=== PATIENT | male | born 1945 | race Caucasian/White ===

== ENCOUNTER 2018-12-18 15:16 | Observation (INO) ==
[2018-12-18 17:42] LABS: BASO# 0.28 X1000 (0.0-0.2); BASO% 0.6 % (0.0-0.8); EOS# 0.11 X1000 (0.0-0.7); EOS% 0.2 % (0.0-10.0); HEMATOCRIT 41.5 % (42.0-52.0); HEMOGLOBIN 13.8 g/dL (14.0-18.0); MCH 25.7 PG (27-31); MCHC 33.3 g/dL (33-37); MCV 77.1 FL (81-99); MPV 11.7 FL (7.4-10.4); PLT 173 X1000 (130-400); RBC 5.38 XMIL (4.7-6.1); RDW 19.2 % (11.5-14.5); WBC 46.17 X1000 (4.8-10.8)
[2018-12-18 18:16] LABS: AGAP 14; BUN 9 mg/dL (8-22); CALCIUM 8.8 mg/dL (8.8-10.2); CHLORIDE 98 mmol/L (98-107); COSMO 273; ESTIMATED GFR > 60; GLUCOSE 103 mg/dL (70-104); POTASSIUM 2.9 mmol/L (3.5-5.1); SODIUM 137 mmol/L (136-145); TCO2 25 mmol/L (25-35)
[2018-12-18 18:51] LABS: LARGE PLATELETS OCCASIONAL; LYMPHS 13 % (21-51); MONO 2 % (1-9)
[2018-12-18 18:52] LABS: ANISOCYTOSIS 1+; SEGS 24 % (42-75)
[2018-12-18] MEDS ORDERED: ZOFRAN 16 MG in NS 25 ML IV ONE (19:18)
[2018-12-18] MEDS ORDERED: SODIUM CHLORIDE 0.9% INJ SCH (19:30)
[2018-12-18 20:18] LABS: URINE SOURCE CLEAN CATCH
[2018-12-18 20:22] LABS: BILIRUBIN URINE NEGATIVE (NEGATIVE); BLOOD URINE NEGATIVE (NEGATIVE); COLOR YELLOW; GLUCOSE URINE NEGATIVE (NEGATIVE); KETONE URINE NEGATIVE (NEGATIVE); LEUKOCYTES URINE NEGATIVE (NEGATIVE); NITRITE URINE NEGATIVE (NEGATIVE); PROTEIN URINE TRACE mg/dL (NEGATIVE); TURBIDITY URINE CLEAR (CLEAR); UROBILINOGEN URINE NORMAL (NORMAL)
[2018-12-18 20:24] LABS: UR EPITHELIAL CELLS <10 /HPF (<10); URINE BACTERIA NEGATIVE /HPF; URINE RBC <10 /HPF (<10); URINE WBC <10 /HPF (<10)
--- NOTE | 2018-12-18 21:45 | Diag Imaging Result Doc PS360 ---
EXAM: CT ABD/PELVIS W/IV CONT ONLY - 12/18/2018 HISTORY: LLQ pain TECHNIQUE: CT abdomen/pelvis with intravenous contrast COMPARISON: 09/05/2018 FINDINGS: There is chronic small right pleural effusion with pleural thickening and chronic dependent/compressive atelectasis. There is splenomegaly which is decreased compared to prior. There is no focal splenic lesion identified. There are no substantial abnormalities of the liver, adrenal glands, or pancreas identified. There are no calcified gallstones or pericholecystic inflammation identified. The bilateral kidneys enhance homogeneously. There is no hydronephrosis. There are no substantially enlarged lymph nodes identified. There is wall thickening along the colon from the hepatic flexure through the rectosigmoid colon. The wall thickening is most substantial at the sigmoid colon, bladder yun demonstrate heterogeneous enhancement and edema. There is infiltration of pericolic fat from the sigmoid. There is retained fluid in the proximal colon and distal small bowel. There is no evidence of bowel obstruction. The appendix shows no obvious inflammation. There is no extraluminal gas collection or abscess identified. There is no free air or substantial free fluid identified. IMPRESSION: Relatively generalized colitis. This is most substantial at the sigmoid, where the colitis is relatively severe. No abscess. No free air. Splenomegaly, which has decreased from prior.. This exam was performed using automated exposure control, adjustment of mA or kV according to patient size, and/or use of iterative reconstruction technique. Electronically signed by Nathan Ragsdale 12/18/2018 9:43 PM
[2018-12-18] MEDS: FLAGYL 500 MG/NS 500 MG/100 ML IVPB IV SCH (22:02)
--- NOTE | 2018-12-18 22:06 | HISTORY AND PHYSICAL ---
REASON FOR ADMISSION: One-day history of left lower quadrant pain and appears to be fever, low- grade. HISTORY OF PRESENT ILLNESS: He is a 73-year-old, white gentleman, with new onset of CLL, under the care of Dr. Bryant, on Imbruvica, came in with sudden onset of left lower quadrant pain and low- grade fever. White cell count 44,000. He was very extremely tender with guarding. Admitted to the hospital with possible diverticulitis. Waiting for CT of the abdomen and pelvis. Potassium is low. Started on IV fluids and IV antibiotics. PAST MEDICAL HISTORY: 1. Chronic lymphocytic leukemia. 2. CAD. 3. Type 2 diabetes. 4. Dupuytren's contracture of the left hand. 5. Acid reflux disease. 6. Gynecomastia. 7. Hyperlipidemia. 8. Hypertension. 9. Low-grade non-Hodgkin's lymphoma from CLL. 10. Osteoarthritis. 11. Prostate cancer, status post TURP by Dr. Chowdhury in 2019. PAST SURGICAL HISTORY: Bypass surgery, inguinal hernia repair, left hand surgery, back surgery x3, right shoulder surgery. MEDICINES: Allopurinol 300 mg daily, aspirin 81 mg daily, Lipitor 80 mg daily, baclofen 10 mg 2 tablets once daily, Plavix 75 daily, Flonase 1 spray in each nostril, Imbruvica 420 mg daily, lisinopril 20 mg daily, metformin 500 daily, Remeron 15 mg at bedtime, Protonix 40 daily, Toprol- XL 25 daily, tizanidine 4 mg 2 tablets daily. ALLERGIES: Not known. SOCIAL HISTORY: He has been for 36 years. No children. Lives in [place] and retired. No smoking. No alcohol. No drug abuse. FAMILY HISTORY: Father of heart problems at 69. HEALTH MAINTENANCE: Flu vaccine 01/18/2018, pneumococcal 02/20/2018, tetanus January 2018, shingles refused. Last physical August 2017, colonoscopy in July 2016. REVIEW OF SYSTEMS: HEENT: No headache. No vision problem. No earache. No sore throat. Neck: No goiter. No lymphadenopathy. No bruit. Cardiopulmonary: No chest pain, shortness of breath, PND, orthopnea. Gastrointestinal: Left lower quadrant pain, nausea, low-grade fever. Genitourinary: No history of hesitancy, frequency, dysuria. No swelling of feet. No joint pain. Neurologic: No focal symptoms or weakness. PHYSICAL EXAMINATION: VITAL SIGNS: Temperature is 99.1 degrees, pulse 80, blood pressure 152/71, room air 99%. Six feet tall, 169 pounds. HEENT: Atraumatic, normocephalic. Pupils equal, reactive to light. TMs are normal. Nose and throat within normal limits. NECK: Supple. No lymphadenopathy. No goiter. CHEST: Bilateral air entry. CARDIAC: Heart sounds are regular. ABDOMEN: Belly is soft. Tender in the left lower quadrant, guarding. No signs of peritonitis. EXTREMITIES: No peripheral edema, cyanosis. NEUROLOGIC: No obvious neurological deficits. INVESTIGATIONS: CBC: White cell count 46.17, hematocrit 41.5, platelets 173,000. Sodium 137, potassium 2.9, BUN 9, creatinine 1.0. Urinalysis is clear. ASSESSMENT/PLAN: 1. A 73-year-old, white male, with known history of chronic lymphocytic leukemia with chronic non- Hodgkin's lymphoma, under the care of [facility], came in with fever, left lower quadrant pain suspicious for diverticulitis. Plan of care is: A.) Diet n.p.o. B.) IV fluids with potassium. C.) Antibiotics with Zosyn and Flagyl. D.) Continue IV Nexium and Zofran for nausea. 2. Type 2 diabetes. Insulin with sliding scale insulin coverage. We will check the IgG levels and then follow up on the pending labs. 3. History of bypass surgery since 2019. Stable on aspirin, beta blockers, and will follow up. cc: Tae Cuellar MD
[2018-12-18] MEDS: NEXIUM IV SCH (22:11)
[2018-12-18] MEDS: POTASSIUM CHLORIDE 40 MEQ in 1/2 NS 1,000 ML IV SCH (22:12)
[2018-12-18] MEDS: ZOSYN 3.375 GM in NS 50 ML IV SCH (23:23)
[2018-12-18] MEDS: HUMULIN R SUBQ SCH (23:28)
[2018-12-19] MEDS: FLAGYL 500 MG/NS 500 MG/100 ML IVPB IV SCH ×5 (04:22→21:17)
[2018-12-19] MEDS: ZOSYN 3.375 GM in NS 50 ML IV SCH ×3 (06:32→19:27)
[2018-12-19] MEDS: HUMULIN R SUBQ SCH ×4 (06:33→21:17)
[2018-12-19 07:22] LABS: BASO# 0.15 X1000 (0.0-0.2); BASO% 0.5 % (0.0-0.8); EOS# 0.14 X1000 (0.0-0.7); EOS% 0.4 % (0.0-10.0); HEMATOCRIT 37.7 % (42.0-52.0); HEMOGLOBIN 12.5 g/dL (14.0-18.0); IMM GRAN% 0.3 % (0.0-0.5); LYMPH# 19.23 X1000 (1.2-3.4); LYMPH% 59.9 % (20.5-51.1); MCH 25.7 PG (27-31); MCHC 33.2 g/dL (33-37); MCV 77.4 FL (81-99); MONO# 3.06 X1000 (0.11-0.59); MONO% 9.5 % (1.7-9.3); MPV 12.2 FL (7.4-10.4); NEUT# 9.42 X1000 (1.4-6.5); NEUT% 29.4 % (42.2-75.2); PLT 152 X1000 (130-400); RBC 4.87 XMIL (4.7-6.1); RDW 19.1 % (11.5-14.5)
[2018-12-19 07:26] LABS: AGAP 11; BUN 9 mg/dL (8-22); CHLORIDE 100 mmol/L (98-107); COSMO 270; CREATININE 1.1 mg/dL (0.7-1.2); GLUCOSE 92 mg/dL (70-104); POTASSIUM 3.1 mmol/L (3.5-5.1); SODIUM 136 mmol/L (136-145); TCO2 25 mmol/L (25-35)
[2018-12-19 07:27] LABS: CALCIUM 8.1 mg/dL (8.8-10.2); ESTIMATED GFR > 60
[2018-12-19 08:01] LABS: LYMPHS 42 % (21-51); MONO 16 % (1-9); SEGS 26 % (42-75)
[2018-12-19] MEDS: POTASSIUM CHLORIDE 20 MEQ/SWI 20 MEQ/100 ML IVPB IV SCH ×2 (09:41→14:04)
[2018-12-19] MEDS: POTASSIUM CHLORIDE 40 MEQ in 1/2 NS 1,000 ML IV SCH ×2 (14:04→14:13)
--- NOTE | 2018-12-19 21:03 | GASTROENTEROLOGY CONSULTATION ---
DATE: 12/19/2018 REASON FOR CONSULTATION: Colitis, abdominal pain. HISTORY OF PRESENT ILLNESS: Mr. Dominik Marx is a 73-year-old gentleman with a past medical history of hypertension, hyperlipidemia, CAD status post CABG, non insulin-dependent diabetes, CLL on Imbruvica, GERD, iron deficiency anemia, and diverticulosis, who presents with 5 to 6 weeks of left lower quadrant abdominal pain and diarrhea. The patient describes his pain as cramping in the lower abdomen. He reports associated loose stools with mucus stools anywhere between 1 to 4 times per day. He has not been on any recent antibiotics. He denies any sick contacts. He does report a history of C difficile in the remote past. No changes to his medications. He was started on Imbruvica about 3 months ago. He has lost a significant amount of weight in the last 6 months, down from 184 to 169. He says that his white count prior to starting Imbruvica was about 105. REVIEW OF SYSTEMS: As per HPI, otherwise 12-point review of systems is negative. PAST MEDICAL HISTORY: CLL, non insulin-dependent diabetes, hypertension, hyperlipidemia, coronary artery disease status post CABG, GERD, iron deficiency anemia, history of C difficile, osteoarthritis, history of prostate cancer status post TURP. PAST SURGICAL HISTORY: Cardiac bypass, inguinal hernia repair, left hand surgery, back surgery x3, right rotator cuff. MEDICATIONS: Include allopurinol, aspirin, Lipitor, baclofen, Plavix, Flonase, Imbruvica, lisinopril, metformin, Remeron, Protonix, Toprol-XL, tizanidine. ALLERGIES: No known drug allergies. FAMILY HISTORY: No family history of GI malignancies. SOCIAL HISTORY: No smoking, alcohol or drug use. PHYSICAL EXAMINATION: Vital Signs: Temperature is 98.3 degrees, heart rate 81, respiratory rate 20, blood pressure 147/67, O2 saturation 99% on room air. General: Patient is awake, alert, oriented, no acute distress. HEENT: Sclerae anicteric. Moist mucous membranes. Extraocular motor intact. Neck: Supple. No JVD or lymphadenopathy. Cardiac: Regular rate and rhythm. No murmurs. Lungs: Clear to auscultation bilaterally. No wheezing. Abdomen: Obese, soft. Significant tenderness to palpation in the left lower quadrant with voluntary guarding. No rebound. No ascites. The bowel sounds are present. Extremities: No clubbing, cyanosis, or edema. Neurologic: Nonfocal. LABS: White count of 32 from 46. Hemoglobin is 12.5, MCV is 77.4, platelets of 152, segmented neutrophils of 26, monocytes of 16. BMP is notable for potassium of 3.1. UA shows trace protein. IMAGING: CT of the abdomen and pelvis with IV contrast shows relatively generalized colitis which is most substantial at the sigmoid, where the colitis is severe. No abscess. No free air. Splenomegaly which has decreased from prior. Stool studies are pending, including C difficile antigen and toxin, white cells, fecal occult and stool culture. ASSESSMENT AND PLAN: Mr. Dominik Marx is a gentleman with history of chronic lymphocytic leukemia and Clostridium difficile, who presents with severe left lower quadrant abdominal pain found to have diffuse colitis primarily in the sigmoid colon. He is currently on antibiotics with Zosyn and Flagyl. He is also on proton pump inhibitor therapy once daily. His white count has come down, although this is most likely related to his chronic lymphocytic leukemia. He has had a colonoscopy in the last 2 years. He had an esophagogastroduodenoscopy and colonoscopy in July 2016. EGD showed peptic ulcer disease which at that time was attributed to taking aspirin. Colonoscopy showed moderate severe diverticulosis in the sigmoid and descending colon. There were some small flat polyps that were removed in the sigmoid colon, otherwise unremarkable. Will plan on awaiting stool studies to rule out Clostridium difficile before considering diagnostic colonoscopy. Continue antibiotics, serial abdominal exams, pain control. The patient can have clear liquids as tolerated, antiemetics p.r.n., Proton pump inhibitor IV can be transitioned to p.o. once daily. Once his Clostridium difficile is ruled out, we will consider diagnostic colonoscopy to evaluate for ischemic colitis versus inflammatory bowel disease, which would be unusual at his age to have developed new onset inflammatory bowel disease, particularly in the setting of immunosuppression. Thank you for this consult. We will follow with you. Please call with any questions or concerns. cc: Tae Cuellar MD
[2018-12-19] MEDS: NEXIUM IV SCH (21:17)
[2018-12-20] MEDS: ZOSYN 3.375 GM in NS 50 ML IV SCH ×4 (00:20→17:42)
[2018-12-20] MEDS: POTASSIUM CHLORIDE 40 MEQ in 1/2 NS 1,000 ML IV SCH ×3 (03:31→22:24)
[2018-12-20] MEDS: FLAGYL 500 MG/NS 500 MG/100 ML IVPB IV SCH ×3 (03:31→21:25)
--- NOTE | 2018-12-20 06:02 | PROGRESS NOTE ---
DATE: 12/19/2018 SUBJECTIVE: The patient complains of diarrhea, left lower quadrant pain off and on for the last [address] findings discussed. REVIEW OF SYSTEMS: None reported. OBJECTIVE: Temperature is 98 degrees, low-grade fever. Vitals are stable.HEENT: Within normal limits. Neck: Supple. Chest: Clear. Heart sounds are regular. Belly is soft. Tender in the left lower quadrant. No peripheral edema. No obvious deficits. INVESTIGATIONS: CBC: White cell count 32, hematocrit 37, platelets 152,000. Sodium 136, potassium 3.1, chloride 100, BUN 9, creatinine 1.0, glucose 146. IgG is low. ASSESSMENT AND PLAN: 1. Sigmoid colitis, rule out infectious. Follow up on stool studies. 2. Chronic lymphocytic leukemia, on Imbruvica. 3. IgG deficiency. 4. NPO. 5. Check the inflammatory bowel disease panel. Also, consult with Dr. Judge. Currently on IV Flagyl and Zosyn. We will hold the home medications. We will repeat the labs in the morning. 6. Hypokalemia. Replace the potassium. LEVEL OF DOCUMENTATION: 25 minutes. cc: Tae Cuellar MD
[2018-12-20] MEDS: HUMULIN R SUBQ SCH ×4 (06:25→22:24)
[2018-12-20 07:32] LABS: BASO# 0.16 X1000 (0.0-0.2); BASO% 0.5 % (0.0-0.8); EOS# 0.19 X1000 (0.0-0.7); EOS% 0.6 % (0.0-10.0); HEMATOCRIT 41.8 % (42.0-52.0); HEMOGLOBIN 13.7 g/dL (14.0-18.0); MCH 25.4 PG (27-31); MCHC 32.8 g/dL (33-37); MCV 77.4 FL (81-99); MPV 11.9 FL (7.4-10.4); PLT 156 X1000 (130-400); RDW 19.2 % (11.5-14.5); WBC 32.57 X1000 (4.8-10.8)
[2018-12-20 07:42] LABS: AGAP 13; BUN 5 mg/dL (8-22); CALCIUM 8.3 mg/dL (8.8-10.2); CHLORIDE 103 mmol/L (98-107); COSMO 279; ESTIMATED GFR > 60; GLUCOSE 99 mg/dL (70-104); POTASSIUM 3.4 mmol/L (3.5-5.1); SODIUM 141 mmol/L (136-145); TCO2 25 mmol/L (25-35)
[2018-12-20 08:11] LABS: LYMPHS 60 % (21-51); MONO 5 % (1-9); SEGS 35 % (42-75)
[2018-12-20 08:12] LABS: ANISOCYTOSIS 1+; HOWELL-JOLLY BODIES OCCASIONAL; MICROCYTOSIS 1+
[2018-12-20 08:13] LABS: POLYCHROM 1+
[2018-12-20] MEDS ORDERED: POTASSIUM CHLORIDE 40 MEQ/SWI 40 MEQ/100 ML IVPB IV ONE (08:17)
[2018-12-20] MEDS: POTASSIUM CHLORIDE 20 MEQ/SWI 20 MEQ/100 ML IVPB IV SCH ×2 (10:59→13:56)
[2018-12-20] MEDS ORDERED: GOLYTELY PO ONE (14:00)
--- NOTE | 2018-12-20 16:01 | GASTROENTEROLOGY PROGRESS NOTE ---
DATE: 12/20/2018 SUBJECTIVE: Patient is resting in bed. His family is present at the bedside. The patient denies any new complaints. He has diarrhea. He denies any fevers, rigors, chills. OBJECTIVE: Vital signs: Temperature 97.7 degrees, pulse rate of 86, respiratory rate of 18, blood pressure 157/82, saturating 100% on room air. Body weight of 169 pounds 4 ounces, BMI 23.0 kg/m2. General appearance: Moderately built, moderately nourished, lying in bed, in no acute distress. HEENT: No pallor. No icterus. Neck: Supple. Abdomen: Discomfort in the left lower quadrant. No rebound or guarding. Extremities: No cyanosis, clubbing. Neurology: He is alert, awake, oriented x3. LABS: Hemoglobin and hematocrit are 13.7 and 41.8, white count 32.57, platelet count of 156,000. Sodium 141, potassium 3.4, chloride 103, bicarb 25, anion gap 13, BUN of 5, creatinine 1, glucose of 99, calcium 8.3. IgG level is 620. C. difficile toxin and antigen were negative and stool culture, no enteric pathogens. Stool for blood positive and stool for white cells, few. IMPRESSION AND PLAN: 1. Left lower quadrant pain and diffuse colitis in the sigmoid colon on imaging. Continue on Zosyn and Flagyl. We will schedule him for a colonoscopy tomorrow with Dr. Judge. The risks, benefits, indications, and alternatives to the procedure were discussed with the patient and all questions answered. 2. Chronic lymphocytic leukemia. Aware. Leukocytosis is likely secondary to a combination of colitis and CLL. 3. History of peptic ulcer disease. He will continue on PPIs. 4. Diarrhea. Continue watch for now. Replete electrolytes. 5. Gastrointestinal prophylaxis. PPIs. 6. Further recommendations are pending the hospital course. The above plan was discussed with the patient and family and all questions answered. Please call us with any further questions. cc: MD Tae Alvarez MD Michael Kelso, MD
[2018-12-20] MEDS: AMBIEN PO SCH (21:25)
--- NOTE | 2018-12-20 22:04 | PROGRESS NOTE ---
DATE: 12/20/2018 SUBJECTIVE: The patient is a little better, crusher tender. Appreciated gastrointestinal consult. OBJECTIVE: Vital signs: On examination temp is 97.4 degrees, pulse 88, vitals are stable. HEENT exam: Within normal limits. Neck: Is supple. Chest: Is clear. Heart: Sounds are regular. Abdomen: Belly is soft. Tenderness in the left lower quadrant decreased. Neurologic: No neurological deficits. INVESTIGATIONS: CBC: White cell count 32, hematocrit 41.8, platelet count 156,000. Sodium 141, potassium 3.4, BUN 5, creatinine 1.0. IgG levels 620. C difficile antigen is negative. ASSESSMENT AND PLAN: 1. Sigmoid colitis, rule out infectious causes. On clear liquids. 2. Waiting for colonoscopy. 3. Follow up on inflammatory bowel disease panel. 4. Hypokalemia replace the potassium. 5. Continue IV fluids and Zosyn and metronidazole. 6. We will repeat the labs in the morning. Chronic lymphocytic leukemia stable on Imbruvica. 7. IgG deficiency. We will discuss with Dr. Bryant for replacement of IgG and continue on intravenous Nexium and we will follow up. I appreciated Gastroenterology consult. LEVEL OF DOCUMENTATION: 35 minutes. cc: Tae Cuellar MD
[2018-12-20] MEDS: NEXIUM IV SCH (22:18)
[2018-12-21] MEDS: ZOSYN 3.375 GM in NS 50 ML IV SCH ×4 (00:09→17:39)
[2018-12-21] MEDS: FLAGYL 500 MG/NS 500 MG/100 ML IVPB IV SCH ×3 (03:28→21:43)
[2018-12-21] MEDS ORDERED: DIPRIVAN 1% ONE ×2 (07:51→10:21)
--- NOTE | 2018-12-21 07:51 | EKG Report ---
Test Performed on : 12/21/2018 07:22:45 AM Test Reason : wants for surgey Blood Pressure : / mmHG Vent. Rate : 066 BPM Atrial Rate : 066 BPM P-R Int : 146 ms QRS Dur : 090 ms QT Int : 394 ms P-R-T Axes : 045 -45 -04 degrees QTc Int : 413 ms Sinus rhythm. with occasional premature ventricular complexes. Left anterior fascicular block Minimal voltage criteria for LVH, may be normal variant Abnormal ECG When compared with ECG of 12-JAN-2011 08:05, premature ventricular complexes. are now present Confirmed by Gabrielle KLEIN, Jose Morris ([id number]) on 12/21/2018 1:53:39 PM
[2018-12-21 08:38] LABS: AGAP 10; BUN 2 mg/dL (8-22); CALCIUM 7.4 mg/dL (8.8-10.2); CHLORIDE 102 mmol/L (98-107); COSMO 271; ESTIMATED GFR > 60; GLUCOSE 85 mg/dL (70-104); POTASSIUM 3.3 mmol/L (3.5-5.1); SODIUM 138 mmol/L (136-145); TCO2 26 mmol/L (25-35)
[2018-12-21 08:44] LABS: BASO# 0.12 X1000 (0.0-0.2); BASO% 0.5 % (0.0-0.8); EOS# 0.31 X1000 (0.0-0.7); EOS% 1.2 % (0.0-10.0); HEMATOCRIT 37.1 % (42.0-52.0); HEMOGLOBIN 12.2 g/dL (14.0-18.0); IMM GRAN# 0.06 X1000 (0.0-0.04); IMM GRAN% 0.2 % (0.0-0.5); LYMPH# 17.99 X1000 (1.2-3.4); LYMPH% 71.1 % (20.5-51.1); MCH 25.5 PG (27-31); MCHC 32.9 g/dL (33-37); MCV 77.5 FL (81-99); MONO# 1.94 X1000 (0.11-0.59); MONO% 7.7 % (1.7-9.3); MPV 11.4 FL (7.4-10.4); NEUT# 4.89 X1000 (1.4-6.5); NEUT% 19.3 % (42.2-75.2); PLT 144 X1000 (130-400); RBC 4.79 XMIL (4.7-6.1); RDW 19.1 % (11.5-14.5); WBC 25.31 X1000 (4.8-10.8)
[2018-12-21 08:54] LABS: BANDS 2 % (0-1); EOS 4 % (1-10); LYMPHS 54 % (21-51); MONO 4 % (1-9); SEGS 14 % (42-75)
[2018-12-21 08:55] LABS: ANISOCYTOSIS 1+; HYPOCHROM 1+; POIKILOCYTOSIS 1+
[2018-12-21] MEDS ORDERED: ZOFRAN ONE (09:37)
--- NOTE | 2018-12-21 10:23 | ENDOSCOPY OPERATIVE NOTE ---
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 PROCEDURE PERFORMED: Colonoscopy with biopsy MEDICATIONS: Per Anesthesia PREP TYPE: GoLytely
[2018-12-21] MEDS: HUMULIN R SUBQ SCH ×3 (11:17→16:31)
[2018-12-21] MEDS: POTASSIUM CHLORIDE 40 MEQ in 1/2 NS 1,000 ML IV SCH (14:13)
[2018-12-21] MEDS: POTASSIUM CHLORIDE 20 MEQ/SWI 20 MEQ/100 ML IVPB IV SCH ×2 (19:16→23:39)
[2018-12-21] MEDS: AMBIEN PO SCH (21:42)
[2018-12-21] MEDS: NEXIUM IV SCH (21:43)
--- NOTE | 2018-12-21 22:31 | PROGRESS NOTE ---
DATE: 12/21/2018 SUBJECTIVE: The patient is sitting up out of bed. He still has left lower quadrant pain and exquisite tenderness. Otherwise, no other complaints. I appreciate Dr. Ahumada, Dr. Judge's help. PHYSICAL EXAM: Vital Signs: Temperature is 97.5 degrees, pulse 76, blood pressure 163/70, 99% on room air. HEENT: Within normal limits. Neck: Supple, no lymphadenopathy. Chest: Clear to auscultation. Cardiovascular: Heart sounds are regular. Abdomen: Belly is soft. Tender in the left lower quadrant. INVESTIGATIONS: White cell count 25, hematocrit 37, platelets 144. Sodium 138, potassium 3.3, chloride 102, BUN 2, creatinine 1.0, calcium 7.4. IgG levels slightly low. Inflammatory bowel disease panel was negative. Stool C difficile toxin was negative. Occult blood positive. No enteric pathogens. ASSESSMENT AND PLAN: 1. Diffuse colitis, mostly on the left side, etiology to be determined. Rule out Clostridium difficile. Currently on Flagyl and metronidazole. 2. Hypokalemia. Replace the potassium. 3. Chronic lymphocytic leukemia with lymphoma, on Imbruvica. 4. IgG deficiency from the chronic lymphocytic leukemia. 5. Gastrointestinal prophylaxis with intravenous Nexium. 6. Deep venous thrombosis prophylaxis with antithrombotic stockings. 7. Ambien for sleep. 8. The patient is going for a colonoscopy this afternoon by Dr. Judge. We will follow up. LEVEL OF DOCUMENTATION: 25 minutes. cc: Tae Cuellar MD
[2018-12-22] MEDS: ZOSYN 3.375 GM in NS 50 ML IV SCH ×4 (01:02→17:55)
[2018-12-22] MEDS: HUMULIN R SUBQ SCH ×5 (01:25→22:08)
[2018-12-22] MEDS: FLAGYL 500 MG/NS 500 MG/100 ML IVPB IV SCH (04:29)
[2018-12-22 08:18] LABS: AGAP 10; BUN 2 mg/dL (8-22); CALCIUM 7.7 mg/dL (8.8-10.2); CHLORIDE 103 mmol/L (98-107); COSMO 277; ESTIMATED GFR > 60; GLUCOSE 128 mg/dL (70-104); POTASSIUM 3.8 mmol/L (3.5-5.1); SODIUM 140 mmol/L (136-145); TCO2 27 mmol/L (25-35)
[2018-12-22 08:19] LABS: BASO# 0.04 X1000 (0.0-0.2); HEMATOCRIT 37.9 % (42.0-52.0); HEMOGLOBIN 12.3 g/dL (14.0-18.0); MCH 25.7 PG (27-31); MCHC 32.5 g/dL (33-37); MCV 79.3 FL (81-99); MPV 11.7 FL (7.4-10.4); PLT 148 X1000 (130-400); RBC 4.78 XMIL (4.7-6.1); RDW 19.5 % (11.5-14.5); WBC 26.07 X1000 (4.8-10.8)
[2018-12-22 08:29] LABS: LYMPHS 37 % (21-51); MONO 2 % (1-9); SEGS 28 % (42-75)
[2018-12-22 08:30] LABS: ANISOCYTOSIS 1+
--- NOTE | 2018-12-22 10:24 | PROGRESS NOTE ---
DATE: 12/22/2018 SUBJECTIVE: The patient has had some diarrhea, mainly air. Overall feels better, improving. Had a colonoscopy yesterday and biopsies are pending. OBJECTIVE: Afebrile, pulse 74, respirations 21, blood pressure 142/79, O2 saturation room air 98- 100%. CV: RRR. Lungs: CTA. Abdomen: Nondistended. Mild tenderness, especially left abdomen. Extremities: No calf tenderness, cords or edema. Neurologic: Cranial nerves are intact. Nonfocal. Stool studies show occult blood positive, few WBCs, negative culture, negative C. diff antigen and antibody and the colonoscopy results revealing pancolitis. Biopsies pending. Labs show sodium 140, potassium 3.8, chloride 103, CO2 27, BUN 2, creatinine 1.0, calcium 7.7. White count 26, hemoglobin 12.3, platelets 148,000. ASSESSMENT: 1. Pancolitis, etiology still to be determined. 2. Hypokalemia, repleted. 3. Chronic lymphocytic leukemia on Imbruvica. 4. IgG deficiency. 5. Type 2 diabetes mellitus. 6. Hypertension. 7. Gastroesophageal reflux disease. 8. Chronic insomnia. PLAN: Resume his antihypertensive medications. Change Flagyl o from IV to oral. Continue Zosyn currently unless Dr. Judge does not want this to be continued. Place him on oral PPI instead of IV PPI. Adjust his potassium given by IV and he is on full liquids now per Dr. Judge. We will observe. cc: MD Tae Merritt MD
[2018-12-22] MEDS: 1/2 NS + KCL 20 MEQ 1,000 ML IV SCH ×2 (10:51→22:15)
[2018-12-22] MEDS: PROTONIX PO SCH (10:56)
[2018-12-22] MEDS: LOPRESSOR PO SCH (10:56)
[2018-12-22] MEDS: PATIENT'S OWN MED PO SCH (10:57)
[2018-12-22] MEDS: FLAGYL PO SCH ×2 (12:30→17:57)
--- NOTE | 2018-12-22 20:04 | GASTROENTEROLOGY PROGRESS NOTE ---
DATE: 12/22/2018 SUBJECTIVE: He is resting in bed. He is feeling better. He is eating better. He denies any nausea, vomiting, vomiting blood, denies any fevers, rigors, or chills. He is moving his bowels. No bowel movements so far today. He wants to go home. Vital signs: Temperature 98.3, pulse of 70, respiratory rate 20, blood pressure 150/75, saturating 99% on room air. Body weight of 169 pounds 4 ounces. BMI of 23 kg/m. General Appearance: Moderately built, lying in bed, in no acute distress. HEENT: Pale conjunctiva. Neck: Supple. Abdomen: Protuberant, soft, nondistended, mild discomfort left lower quadrant. No rebound. Extremities: No cyanosis, clubbing. Neurologic: He was alert, awake, oriented x 3. LABS: Hemoglobin and hematocrit is 12.3 and 37.9, white count of 26.07, platelet count of 148,000, sodium 140, potassium 3.8, chloride 103, bicarb 27, anion gap 10, BUN of 2, creatinine 1, glucose of 120, calcium 7.7. Inflammatory bowel disease panel is negative ASCA antibody IgA type and negative ASCA antibody IgG type and negative neutrophil specific antibody. IMPRESSION AND PLAN: 1. Pancolitis. It was biopsied by Dr. Judge. The patient will follow up in the clinic in one week after discharge to discuss the biopsy report. Most likely it is going to be ischemic colitis. 2. Diverticulosis sigmoid colon. Patient to avoid excessive corn, nuts, and seeds in diet. 3. Hypokalemia, repleted. 4. Chronic lymphocytic leukemia. On Imbruvica. 5. IgG deficiency, aware. 6. Type 2 diabetes. Being managed by the primary team. 7. Hypertension being managed by the primary team. 8. Reflux disease. He is on PPIs. 9. Chronic insomnia, aware. 10. The patient is okay to be discharged from our standpoint to follow up in clinic in 1 week of discharge. 11. Thank you for allowing us to participate in the care of this patient. We will sign off at this time. Please call us with any further questions. cc: MD Tae Alvarez MD MTDD
[2018-12-22] MEDS: AMBIEN PO SCH (22:07)
[2018-12-23] MEDS: ZOSYN 3.375 GM in NS 50 ML IV SCH ×2 (02:41→09:21)
[2018-12-23] MEDS: HUMULIN R SUBQ SCH ×2 (06:08→11:17)
[2018-12-23 07:58] VITALS: BP 165/79
[2018-12-23] MEDS ORDERED: PRINIVIL PO SCH (09:00)
[2018-12-23] MEDS ORDERED: ZYLOPRIM PO SCH (09:00)
[2018-12-23] MEDS: PROTONIX PO SCH (09:21)
[2018-12-23] MEDS: LOPRESSOR PO SCH (09:21)
[2018-12-23] MEDS: FLAGYL PO SCH (09:22)
[2018-12-23] MEDS: PATIENT'S OWN MED PO SCH (09:23)
[2018-12-23] MEDS: 1/2 NS + KCL 20 MEQ 1,000 ML IV SCH (11:14)
--- NOTE | 2018-12-23 11:14 | PROGRESS NOTE ---
DATE: 12/23/2018 SUBJECTIVE: Patient feels well. No major diarrhea. Dr. Ahumada saw him and says he can go home. OBJECTIVE: Afebrile. Vital signs are stable. CV: RRR. Lungs: Clear. Abdomen: Soft, nontender, nondistended. Extremities: No edema. Neurologic: Cranial nerves are intact. IgG borderline low at 620. ASCA antibody IgA type and ASCA antibody IgG type negative with negative neutrophil specific antibody. ASSESSMENT: 1. Pancolitis, possibly ischemic colitis. 2. Sigmoid diverticulosis. 3. Hypokalemia, resolved. 4. Chronic lymphocytic leukemia, stable on Imbruvica. 5. IgG deficiency, chronic. 6. Type 2 diabetes mellitus. 7. Hypertension. 8. Gastroesophageal reflux disease. 9. Chronic insomnia. PLAN: We will discharge the patient home back on his home medications except for the MiraLAX. We will leave that off for a few days. I encouraged him in no particulate food diet. He will follow up with Dr. Ahumada within a week and Dr. Cuellar within a week as well. cc: MD Tae Merritt MD
--- NOTE | 2018-12-23 19:21 | DISCHARGE SUMMARY ---
ADMISSION DATE: 12/18/2018 DISCHARGE DATE: 12/23/2018 DISCHARGING DIAGNOSIS: Acute abdominal pain due to left-sided colitis, etiology to be determined, most likely ischemic. SECONDARY DIAGNOSES: 1. Chronic lymphocytic leukemia. Under the treatment with Imbruvica by Dr. Bryant. 2. Coronary artery disease status post bypass surgery. 3. Type 2 diabetes. 4. Acid reflux disease. 5. Hyperlipidemia. 6. Hypertension. 7. Osteoarthritis. 8. History of prostate cancer, low-grade, stable. 9. IgG deficiency with underlying chronic lymphocytic leukemia. CONSULTS: Dr. Judge. PROCEDURE: Colonoscopy: Findings are diffuse colitis. Biopsies pending. BRIEF HISTORY: Please see the H and P that was done on the 12/18/2018. In brief he is a 73-year- old white gentleman with above problems recently treating with Imbruvica for CLL with low-grade lymphoma by Dr. Bryant came in with acute presentation of lower abdominal pain, diarrhea. Patient was very tender with guarding. White cell count 42,000, which is improving from 1000 with underlying CLL. HOSPITAL COURSE: Patient was given IV fluids. Replaced the potassium for hypokalemia. IV Zosyn and Flagyl. CT scan of the abdomen and pelvis: Diffuse colitis, worsening of the left side of the colon. Findings were discussed with the patient. GI consult was obtained by Dr. Judge. Stools were positive for blood. Ruled out infectious causes with C difficile. The patient subsequently had a colonoscopy done with colitis findings, most likely ischemic. Biopsies were pending. The patient got better tolerating the diet. Discharged home stable condition by Dr. Vieyra on 12/23/2018. LABORATORY DATA: CBC: White cell count 26, hematocrit 37.9, platelets 148,000. Sodium 140, potassium 3.8, chloride 103, BUN 2, creatinine 1.0 glucose 128. Inflammatory bowel disease panel was negative. IgG 620. Clostridium difficile antigen is negative. Stool for white cells positive. Cultures were negative. DISCHARGE INSTRUCTIONS: 1. Baclofen 10 p.o. b.i.d. as needed, lisinopril 20 mg daily, Lipitor 40 mg daily, Icar C 65 mg daily, metformin 500 daily, metoprolol 25 daily, Remeron 15 at bedtime, Protonix 40 mg daily, Imbruvica as per Dr. Bryant, Plavix 75 mg daily, melatonin 10 mg at bedtime, allopurinol 300 daily. Discontinue MiraLAX. Levaquin 500 daily for 2 weeks. 2. Follow up in my office next week. cc: MD Chu Roy MD Naveen T. Lobo, MD
== END 2018-12-23 12:25 | disposition home or self-care (01) ==
LOC: DIRADM 15:16 → INTOOBSV 15:16 → 3N 16:17
PROVIDERS: ADMIT Internal Medicine; ATTEND Internal Medicine